=== PATIENT | female | born 1995 | race African-American/Black ===

== ENCOUNTER 2021-12-01 19:20 | Emergency (ER) | payer MEDICAID ==
[~2021-12-01] VITALS: Ht 165.1 cm; Wt 80.0 kg
[~2021-12-01 19:20] MED LIST: VENTOLIN INH
[2021-12-01 19:51] VITALS: BP 113/69
[2021-12-01] MEDS ORDERED: DOXY-326 MT (22:57)
[2021-12-01] MEDS ORDERED: DOXYCYCLINE HYCLATE 100MG CAPSULE PO ONE (23:00)
[2021-12-01] MEDS ORDERED: CEFTRIAXONE SODIUM 500 MG/VIAL IM ONE (23:00)
[2021-12-01 23:16] LABS: CLARITY URINE CLEAR (CLEAR); COLOR URINE YELLOW (YELLOW); KETONES URINE NEGATIVE (NEGATIVE); LEUKOCYTE ESTERASE URINE 3+ (NEGATIVE); NITRITE URINE NEGATIVE (NEGATIVE); OCCULT BLOOD URINE NEGATIVE (NEGATIVE); PH URINE 6.5 (4.5-8.0); PROTEIN URINE NEGATIVE (NEGATIVE); SPECIFIC GRAVITY URINE 1.021 (1.005-1.030); UROBILINOGEN URINE 0.2 E.U./dL (0.2-1.0)
[2021-12-04 15:09] LABS: NEISSERIA GONORRHOEAE NAA Positive (Negative)
== END 2021-12-02 00:01 | disposition home or self-care (01) ==
LOC: ER 19:20
DX: A74.9 Chlamydial infection, unspecified (principal); A54.9 Gonococcal infection, unspecified; J45.909 Unspecified asthma, uncomplicated
CPT/HCPCS: 81003; 81025; 87086; 87491; 87591; 96372; 99283; J0696